=== PATIENT | female | born 1965 | race Caucasian/White ===

== ENCOUNTER 2016-06-14 08:38 | Inpatient (IN) | payer OTHER ==
[~2016-06-14] VITALS: Ht 162.6 cm; Wt 117.9 kg
[~2016-06-14 08:38] MED LIST: CRESTOR40 MG PO; EFFEXOR XR75 MG PO; ELIQUIS2.5 MG PO; ESTRADERM 0.05 M1 EA TD; GOODY'S EX-STR1 EAC1 PO; GOODY'S EX-STR1 EACH PO; HABITROL 14 MG P1 EA TD; IMITREX100 MG PO; LODINE CAP 300300 MG PO; LORTAB 7.5-3251 EACH PO; PERCOCET 10-321 EACH PO; PERCOCET 5/325 T1 EA PO; PERCOCET 7.5-31 EACH PO; PHENERGAN 25 MG25 M1 PO; PRILOSEC OTC20 MG PO; SINGULAIR10 MG PO; SYNTHROID137 MCG PO; TYLENOL 500 MG500 MG PO; VITAMIN D250000 UNIT PO; XARELTO10 MG PO; ZANAFLEX4 M1 PO
[2016-06-14 09:20] LABS: HEMOGLOBIN 14.4 gm/dl (12.3-15.3); RED BLOOD COUNT 4.75 M/UL (4.00-5.10)
[2016-06-14 09:46] LABS: BUN/CREATININE RATIO 30 (0-10)
[2016-06-15 06:27] LABS: RED BLOOD COUNT 4.35 M/UL (4.00-5.10); WHITE BLOOD COUNT 10.4 K/UL (4.5-11.0)
[2016-06-15 07:09] LABS: BUN/CREATININE RATIO 20 (0-10)
[2016-06-16 05:13] LABS: HEMOGLOBIN 11.9 gm/dl (12.3-15.3); RED BLOOD COUNT 3.99 M/UL (4.00-5.10); WHITE BLOOD COUNT 10.1 K/UL (4.5-11.0)
[2016-06-16 05:27] LABS: BUN/CREATININE RATIO 23 (0-10)
[2016-06-17 06:27] LABS: HEMOGLOBIN 11.5 gm/dl (12.3-15.3); RED BLOOD COUNT 3.89 M/UL (4.00-5.10)
[2016-06-17 07:02] LABS: BUN/CREATININE RATIO 30 (0-10)
[2016-06-17] MEDS ORDERED: CRESTOR10 MG PO (11:48)
[2016-11-20] MEDS ORDERED: LEVOTHYROXINE150 MCG PO (07:02)
[2016-11-20] MEDS ORDERED: NAPROXEN500 MG PO (07:05)
[2016-11-20] MEDS ORDERED: ROBAXIN500 MG PO (07:05)
[2016-11-20] MEDS ORDERED: VENTOLIN HFA 66.7 GM INH (07:07)
[2016-11-20] MEDS ORDERED: PERCOCET 10-321 EACH PO (11:02)
== END 2016-06-17 13:08 | disposition home or self-care (01) | DRG 439 ==
LOC: ER1 08:38 → MED SURG 4 13:30 → ZEROF 13:30 → MED SURG 4 15:33
PROVIDERS: Emergency Medicine; Physician Assistant; ADMIT Internal Medicine
DX: K85.90 Acute pancreatitis without necrosis or infection, unspecified (principal); Z68.41 Body mass index [BMI] 40.0-44.9, adult; E87.6 Hypokalemia; E03.9 Hypothyroidism, unspecified; E78.5 Hyperlipidemia, unspecified; G89.29 Other chronic pain; M54.9 Dorsalgia, unspecified; K21.9 Gastro-esophageal reflux disease without esophagitis; E66.9 Obesity, unspecified; F17.200 Nicotine dependence, unspecified, uncomplicated; Z71.6 Tobacco abuse counseling; Z79.899 Other long term (current) drug therapy
CPT/HCPCS: 36415; 80048; 80053; 80061; 81001; 82150; 83690; 83735; 84132; 84484; 85025; 85027; 87086; 93005; 96361; 96374; 96376; 99285; J1885; J2405; J2550; J7030; J7050; Q9962

== ENCOUNTER → 2016-07-25 | Outpatient (CLI) | payer OTHER ==
[~2016-07-25] MED LIST changes: +CRESTOR10 MG PO; +LEVOTHYROXINE150 MCG PO; +NAPROXEN500 MG PO; +ROBAXIN500 MG PO; +VENTOLIN HFA 66.7 GM INH
== END ==
LOC: KOH-I 15:00
DX: I82.721 Chronic embolism and thrombosis of deep veins of right upper extremity (principal)
CPT/HCPCS: 93971

== ENCOUNTER → 2016-11-14 | Outpatient (CLI) | payer OTHER ==
[~2016-11-14] MED LIST changes: -LEVOTHYROXINE150 MCG PO; -NAPROXEN500 MG PO; -ROBAXIN500 MG PO; -VENTOLIN HFA 66.7 GM INH
[2016-11-14 11:32] LABS: HEMOGLOBIN 14.7 gm/dl (12.3-15.3); RED BLOOD COUNT 4.67 M/UL (4.00-5.10); WHITE BLOOD COUNT 7.6 K/UL (4.5-11.0)
[2016-11-14 11:56] LABS: BUN/CREATININE RATIO 32 (0-10)
== END ==
LOC: OPSV2 10:18
PROVIDERS: Orthopaedic Surgery
DX: Z01.812 Encounter for preprocedural laboratory examination (principal); M23.42 Loose body in knee, left knee; Z88.5 Allergy status to narcotic agent; Z88.8 Allergy status to other drugs, medicaments and biological substances
CPT/HCPCS: 36415; 80048; 85025

== ENCOUNTER → 2020-07-23 | Outpatient (CLI) | payer OTHER ==
[~2020-07-23] MED LIST changes: +AUGMENTIN 875-1 EACH PO; +BENZONATATE100 MG PO; +CELEBREX50 MG PO; +COLACE 100MG C100 MG PO; +ESTRACE0.5 MG PO; -ESTRADERM 0.05 M1 EA TD; +FLAGYL500 MG PO; +FLONASE 0.05% N16 GM; +HYDROCHLOROTHIA25 MG PO; +LISINOPRIL-HCT1 EACH PO; +METHOTREXATE T2.5 MG PO; +NAPROSYN500 MG PO; +NAPROXEN500 MG PO; +NEURONTIN 400400 MG PO; +NORCO 5-325 TA1 EACH PO; +PRINIVIL10 MG PO; +PROTONIX40 MG PO; +REGLAN10 MG PO; +ROBAXIN500 MG PO; +SYNTHROID175 MCG PO; +VENTOLIN HFA 66.7 GM INH; +ZANAFLEX4 MG PO
== END ==
LOC: LAB 11:16
DX: I10 Essential (primary) hypertension (principal)
CPT/HCPCS: 36415; 82941

== ENCOUNTER → 2020-08-12 | Outpatient (CLI) | payer OTHER | LOC: KOH-I 10:20 | DX: M25.572 Pain in left ankle and joints of left foot (principal); M79.672 Pain in left foot | CPT/HCPCS: 73610; 73630 ==

== ENCOUNTER → 2020-08-24 | Outpatient (CLI) | payer OTHER | LOC: KOH-I 08:10 | DX: M79.89 Other specified soft tissue disorders (principal) | CPT/HCPCS: 73718 ==

== ENCOUNTER 2020-09-19 11:19 | Emergency (ER) | payer OTHER ==
[2020-09-19 12:42] LABS: HEMOGLOBIN 13.1 gm/dl (12.3-15.3); RED BLOOD COUNT 4.45 M/UL (4.00-5.10); WHITE BLOOD COUNT 6.1 K/UL (4.5-11.0)
[2020-09-19 13:03] LABS: BUN/CREATININE RATIO 21 (0-10)
[2020-09-19] MEDS ORDERED: PROTONIX40 MG PO (15:35)
== END 2020-09-19 16:23 | disposition home or self-care (01) ==
LOC: ER1 11:19
PROVIDERS: Emergency Medicine
DX: R10.9 Unspecified abdominal pain (principal); F17.200 Nicotine dependence, unspecified, uncomplicated; Z87.442 Personal history of urinary calculi
CPT/HCPCS: 80053; 81001; 82550; 82553; 83605; 83690; 83874; 84484; 85025; 93005; 96374; 96375; 99284; J2270; J2550; J7030; Q9967

== ENCOUNTER 2021-02-01 11:15 | Emergency (ER) | payer OTHER | END 2021-02-01 12:52 | disposition home or self-care (01) | LOC: ER1 11:15 | DX: S42.202A Unspecified fracture of upper end of left humerus, initial encounter for closed fracture (principal); I10 Essential (primary) hypertension; E78.5 Hyperlipidemia, unspecified; F17.200 Nicotine dependence, unspecified, uncomplicated; W19.XXXA Unspecified fall, initial encounter | CPT/HCPCS: 73030; 99283 ==

== ENCOUNTER 2021-04-16 12:54 | Emergency (ER) | payer OTHER ==
[2021-04-16] MEDS ORDERED: CIPRO HC OTIC S10 ML EARBOTH (13:17)
[2021-04-16] MEDS ORDERED: AUGMENTIN 875-1 EACH PO (13:17)
== END 2021-04-16 13:31 | disposition home or self-care (01) ==
LOC: ER1 12:54
DX: H60.92 Unspecified otitis externa, left ear (principal); Z90.710 Acquired absence of both cervix and uterus; I10 Essential (primary) hypertension; Z87.442 Personal history of urinary calculi
CPT/HCPCS: 99282

== ENCOUNTER → 2021-05-30 | Outpatient (CLI) | payer OTHER ==
[~2021-05-30] MED LIST changes: +CIPRO HC OTIC S10 ML EARBOTH
== END ==
LOC: MRI 15:47
DX: H91.92 Unspecified hearing loss, left ear (principal); R42 Dizziness and giddiness; H93.13 Tinnitus, bilateral
CPT/HCPCS: 70553; A9577

== ENCOUNTER → 2021-09-27 | Outpatient (CLI) | payer OTHER | LOC: KOH-I 14:47 | DX: S99.922A Unspecified injury of left foot, initial encounter (principal); S90.452A Superficial foreign body, left great toe, initial encounter | CPT/HCPCS: 73630 ==

== ENCOUNTER → 2021-10-18 | Outpatient (CLI) | payer OTHER | LOC: KOH-I 10:06 | DX: M79.672 Pain in left foot (principal) | CPT/HCPCS: 73630 ==

== ENCOUNTER → 2021-10-25 | Outpatient (CLI) | payer OTHER | LOC: KOH-I 09:15 | DX: S92.312A Displaced fracture of first metatarsal bone, left foot, initial encounter for closed fracture (principal) | CPT/HCPCS: 73630 ==